=== PATIENT | male | born 1950 | race Caucasian/White ===

== ENCOUNTER 2022-05-18 05:25 | Day surgery (SDC) | payer MEDICARE, BC ==
[2022-05-11 10:49] LABS: BASOPHILS % (AUTO) 0.2 % (0-1); EOSINOPHILS # (AUTO) 0.1 X10'3 (0-0.9); EOSINOPHILS % (AUTO) 0.9 % (0-6); LYMPHOCYTES % (AUTO) 41.9 % (21-51); MEAN CORPUSCULAR HEMOGLOBIN 28.7 PG (27.0-31.0); MEAN CORPUSCULAR HGB CONC 32.6 g/dL (33.0-36.5); MEAN CORPUSCULAR VOLUME 87.8 FL (78-98); MONOCYTES # (AUTO) 0.6 X10'3 (0-0.9); MONOCYTES % (AUTO) 8.5 % (2-12); NEUTROPHILS # (AUTO) 3.4 X10'3 (1.8-7.7); NEUTROPHILS % (AUTO) 48.5 % (42-75); PRE OP PLATELET COUNT 266 X10'3 (140-440); RED CELL DISTRIBUTION WIDTH 14.1 % (11.5-14.5)
[2022-05-11 11:08] LABS: ALBUMIN 3.7 G/DL (3.4-5.0); ALBUMIN/GLOBULIN RATIO 1.1 (1.1-1.5); ALKALINE PHOSPHATASE 68 IU/L (46-116); BLOOD UREA NITROGEN 18 MG/DL (7-18); BUN/CREATININE RATIO 18.2 (5.4-32.0); CALCIUM 8.9 MG/DL (8.5-10.1); CHLORIDE 103 MMOL/L (99-107); CREATININE 0.99 MG/DL (0.60-1.10); PRE OP ALT 14 U/L (30-65); PRE OP ANION GAP 9 (8-16); PRE OP AST 19 U/L (10-37); PRE OP BILIRUB, TOTAL 0.4 MG/DL (0.0-1.0); PRE OP GLUCOSE 109 MG/DL (70-104); PRE OP SODIUM 138 MMOL/L (135-145); eGFR 75 ML/MIN
[~2022-05-18] VITALS: Ht 175.3 cm; Wt 83.0 kg
[2022-05-18] VITALS (7 sets, daily range): BP systolic 116–133; BP diastolic 78–94
[~2022-05-18 05:25] MED LIST: BACL5TAB PO; DEXL60CA3 PO; PREG100C55 PO; ringers solution, lacted 1,000 ML IV SCH
[2022-05-18] MEDS ORDERED: ceFAZolin inj. 2,000 MG in dextrose 5%-water 100 ML IV ONE (05:30)
[2022-05-18] MEDS ORDERED: famotidine 20mg tablet PO ONE (05:30)
[2022-05-18] MEDS ORDERED: LIDOCAINE 1%/EPI 1:100,000 inj. 10 ML multi-dose vial ONE (06:48)
[2022-05-18] MEDS ORDERED: TETRACAINE 0.5% 4 ML OPHTHALMIC DROPS ONE (06:48)
[2022-05-18] MEDS ORDERED: morphine 2 MG/ML inj. syringe IV PRN (07:10)
[2022-05-18] MEDS ORDERED: ringers solution, lacted 1,000 ML IV SCH (07:10)
[2022-05-18] MEDS ORDERED: ondansetron/PF 4mg/2ml inj IV PRN (07:10)
[2022-05-18] MEDS ORDERED: morphine 4 MG/ML inj SYRINge IV PRN (07:10)
[2022-05-18] MEDS ORDERED: fentaNYL/PF 50MCG/1 ML 2ML syringe IV PRN ×2 (07:10)
[2022-05-18] MEDS ORDERED: hydrALAZINE 20mg/ml inj. IV PRN (07:10)
[2022-05-18] MEDS ORDERED: labetalol 20mg/4ml (5mg/ml) syringe IV PRN (07:10)
[2022-05-18] MEDS ORDERED: propofol inj 20 ML IV ONE (07:15)
[2022-05-18] MEDS ORDERED: midazolam 1 mg/ML 2ml injection ONE (07:15)
[2022-05-18] MEDS ORDERED: LIDOcaine 2% (20mg/ml) 5ml vial ONE (07:15)
[2022-05-18] MEDS ORDERED: FENTANYL CITRATE/PF 50 MCG/1 ML VIAL ONE (07:15)
--- NOTE | 2022-05-18 08:15 | NUR ---
Received from OR via [facility], accompanied by Anesthesiologist and report given by JUAN Anesthesiologist. PATIENT WAKING UP, DENIES PAIN, VSS, 20G PIV TO LEFT HAND, BILATERAL UPPER LID SUTURES DRESSING C/D/I. Addendum: 05/18/22 at 0844 by Alex Jimenez RN Amended: Links added.
--- NOTE | 2022-05-18 09:05 | NUR ---
ALL DISCHARGE CRITERIA HAS BEEN MET. VSS, PAIN AT A TOLERABLE LEVEL, ABLE TO SAFELY AMBULATE AND TRANSFER SELF. IV TAKEN OUT WITHOUT ANY COMPLICATIONS. ALL DISCHARGE INSTRUCTIONS COVERED WITH PATIENT AND ALL QUESTIONS ANSWERED. PATIENT TAKEN OUT VIA WHEELCHAIR WITH ALL BELONGINGS TO PERSONAL VEHICLE WHERE FAMILY DROVE PATIENT HOME. Addendum: 05/18/22 at 0914 by Alex Jimenez RN Amended: Links added.
== END 2022-05-18 09:05 | disposition home or self-care (01) ==
LOC: PRE-OP 05:25
PROVIDERS: ATTEND Specialist
DX: H02.831 Dermatochalasis of right upper eyelid (principal); H02.834 Dermatochalasis of left upper eyelid; K21.9 Gastro-esophageal reflux disease without esophagitis; Z87.891 Personal history of nicotine dependence; Z98.52 Vasectomy status; Z98.890 Other specified postprocedural states; Z79.899 Other long term (current) drug therapy; Z90.49 Acquired absence of other specified parts of digestive tract
CPT/HCPCS: 15822; 36415; 80053; 82948; 85025; 93005; A6402; J0690; J2250; J2704; J3010; J3490; J7030; J7060; J7120; Z7506; Z7512; A4215; A4618; A6410; A6449; A7000